=== PATIENT | male | born 2000 | race Caucasian/White ===

== ENCOUNTER 2020-07-17 12:56 | Inpatient (IN) | payer OTHER ==
--- NOTE | 2020-07-17 13:34 | BHS.RME ---
Substance Use & Tx History - Substance Use History Alcohol Substance amount: 3-4 bottles wine Frequency of use: Daily Substance route: Oral Date of Last Use: 07/17/20 Klonopin Substance amount: 1mg 2-3 tabs Frequency of use: Daily Substance route: Oral Date of Last Use: 07/17/20 Methadone Substance amount: street methadone 2 -3 bottles Frequency of use: Daily Substance route: Oral Date of Last Use: 07/16/20 Physical/Psych/Mental Status - Behavior General Behavior: Increased activity (restlessness, agitation) Eye Contact: Normal - Cooperativeness Cooperativeness: Cooperative - Thinking Thought Processes: Tight, Logical, Goal Directed - Physical Health Problems Is patient presently having any pain?: No Does patient presently have any injuries (include location): No Does patient currently have a fever: No Is patient : No CIWA Nausea/Vomitin Muscle Tremors: 3 Anxiety: 3 Agitation: 2 Paroxysmal Sweats: 3 Orientation: 0-Oriented Tacttile Disturbances: 1-Very Mild Itch/Numbness Auditory Disturbances: 0-None Visual Disturbances: 0-None Headache: 0-None Present CIWA-Ar Total Score: 17
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
[2020-07-17] MEDS ORDERED: METHOCARBAMOL 500 MG TABLET PO PRN (16:07)
[2020-07-17] MEDS ORDERED: MAG HYDROX/AL HYDROX/SIMETH 30 ML UNIT-DOSE CUP PO PRN (16:07)
[2020-07-17] MEDS ORDERED: ONDANSETRON *ODT* 4 MG TABLET SL PRN (16:07)
[2020-07-17] MEDS ORDERED: NICOTINE POLACRILEX 2 MG GUM BUC PRN (16:07)
[2020-07-17] MEDS ORDERED: MAGNESIUM CITRATE 300 ML BOTTLE PO PRN (16:07)
[2020-07-17] MEDS ORDERED: BISMUTH SUBSALICYLATE 524 MG/30 ML UD PO PRN (16:07)
[2020-07-17] MEDS ORDERED: IBUPROFEN 400 MG TABLET (FP) PO PRN (16:07)
[2020-07-17] MEDS ORDERED: ACETAMINOPHEN 325 MG TABLET (FP) PO PRN ×2 (16:07)
[2020-07-17] MEDS ORDERED: chlordiazePOXIDE HCL 25 MG CAPSULE PO PRN (16:07)
[2020-07-17] MEDS ORDERED: MAGNESIUM HYDROX 2400MG/30ML ORAL SUSPENSION 30 ML CUP PO PRN (16:07)
[2020-07-17] MEDS ORDERED: MENTHOL/PHENOL 1 EACH UD MM PRN (16:07)
[2020-07-17 16:21] VITALS: BMI 22.1
[2020-07-17] MEDS: chlordiazePOXIDE HCL 25 MG CAPSULE PO SCH ×2 (17:57→22:05)
[2020-07-17] MEDS: NICOTINE 21 MG/24 HOURS TOPICAL PATCH TD SCH (17:57)
[2020-07-17] MEDS: hydrOXYzine PAMOATE 25 MG CAPSULE (FP) PO SCH ×2 (17:58→22:06)
[2020-07-17] MEDS ORDERED: MELATONIN 5 MG TABLETS PO SCH (22:00)
[2020-07-17] MEDS ORDERED: THIAMINE HCL 100 MG TABLET (FP) PO SCH (22:00)
[2020-07-18] MEDS: chlordiazePOXIDE HCL 25 MG CAPSULE PO SCH ×2 (05:47→10:59)
[2020-07-18] MEDS: hydrOXYzine PAMOATE 25 MG CAPSULE (FP) PO SCH ×3 (05:47→14:58)
[2020-07-18 09:24] VITALS: BP 108/62; PULSE 58; TEMP 97.8
[2020-07-18 09:33] LABS: HEMATOCRIT 39.4 % (35.4-49); HEMOGLOBIN 13.6 GM/dL (11.7-16.9); MCH 31.7 pg (25.7-33.7); MCHC 34.6 g/dl (32.0-35.9); MEAN CELL VOLUME 91.7 fl (80-96); MEAN PLT VOLUME 9.1 fl (7.5-11.1); PLATELET COUNT 219 K/MM3 (134-434); RDW 12.9 % (11.9-15.9); WHITE BLOOD COUNT 6.3 K/mm3 (4.0-10.0)
[2020-07-18 09:38] LABS: ALBUMIN 4.2 g/dl (3.4-5.0); BILIRUBIN,TOTAL 0.8 mg/dL (0.2-1); BLOOD UREA NITROGEN 6.5 mg/dL (7-18); CALCIUM 9.2 mg/dL (8.5-10.1); CREATININE 0.8 mg/dL (0.55-1.3); TOT PROT 6.8 g/dl (6.4-8.2)
[2020-07-18] MEDS ORDERED: PRENATAL VITAMINS W/ FOLIC ACID TABLET (FP) PO SCH (10:00)
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
--- NOTE | 2020-07-18 11:41 | PN ---
[facility] CIWA - CIWA Score Nausea/Vomitin-No Nausea/No Vomiting Muscle Tremors: None Anxiety: 3 Agitation: 2 Paroxysmal Sweats: 3 Orientation: 0-Oriented Tacttile Disturbances: 0-None Auditory Disturbances: 0-None Visual Disturbances: 0-None Headache: 2-Mild CIWA-Ar Total Score: 10 S Progress Note (SOAP) Subjective: c/o sweats, anxiety, irritability, and headache. Objective: 07/18/20 11:41 Vital Signs 07/18/20 07/18/20 05:43 08:48 Temperature 97.6 F 97.8 F Pulse Rate 70 58 L Respiratory 20 16 Rate Blood Pressure 107/63 108/62 O2 Sat by Pulse 100 Oximetry (%) Laboratory Last Values WBC 6.3 K/mm3 (4.0-10.0) 07/18/20 07:40 RBC 4.30 M/mm3 (4.00-5.60) 07/18/20 07:40 Hgb 13.6 GM/dL (11.7-16.9) 07/18/20 07:40 Hct 39.4 % (35.4-49) 07/18/20 07:40 MCV 91.7 fl (80-96) 07/18/20 07:40 MCH 31.7 pg (25.7-33.7) 07/18/20 07:40 MCHC 34.6 g/dl (32.0-35.9) 07/18/20 07:40 RDW 12.9 % (11.9-15.9) 07/18/20 07:40 Plt Count 219 K/MM3 (134-434) 07/18/20 07:40 MPV 9.1 fl (7.5-11.1) 07/18/20 07:40 Sodium 140 mmol/L (136-145) 07/18/20 07:40 Potassium 4.0 mmol/L (3.5-5.1) 07/18/20 07:40 Chloride 104 mmol/L (98-107) 07/18/20 07:40 Carbon Dioxide 32 mmol/L (21-32) 07/18/20 07:40 Anion Gap 4 MMOL/L (8-16) L 07/18/20 07:40 BUN 6.5 mg/dL (7-18) L 07/18/20 07:40 Creatinine 0.8 mg/dL (0.55-1.3) 07/18/20 07:40 Est GFR (CKD-EPI)AfAm 148.00 07/18/20 07:40 Est GFR (CKD-EPI)NonAf 127.70 07/18/20 07:40 Random Glucose 86 mg/dL (74-106) 07/18/20 07:40 Calcium 9.2 mg/dL (8.5-10.1) 07/18/20 07:40 Total Bilirubin 0.8 mg/dL (0.2-1) 07/18/20 07:40 AST 13 U/L (15-37) L 07/18/20 07:40 ALT 20 U/L (13-61) 07/18/20 07:40 Alkaline Phosphatase 62 U/L (45-117) 07/18/20 07:40 Total Protein 6.8 g/dl (6.4-8.2) 07/18/20 07:40 Albumin 4.2 g/dl (3.4-5.0) 07/18/20 07:40 Syphilis Serology Non-reactive (NONREACTIVE) 07/18/20 07:40 Labs noted. Assessment: 07/18/20 11:41 AOX3, in no acute respiratory distress. Full ROM, ambulating in the unit. Withdrawal symptoms. Plan: continue detox.
[2020-07-18] MEDS: NICOTINE 21 MG/24 HOURS TOPICAL PATCH TD SCH (14:57)
--- NOTE | 2020-07-18 15:26 | DS ---
[facility] Detox Discharge Summary Admission Date: 07/17/20 Discharge Date: 07/18/20 (Pt left AMA.) - History Present History: Alcohol Dependence, Sedative Dependence Additional Comments: Pt left AMA. Pt did not complete the detox protocol. Pt was verbally abusive to staff and stated "i don't need any benzo's, I need methadone, i want to leave if i can't get methadone". An attempt to let pt stay and complete the detox protocol failed. Pt is encouraged to follow-up with an outpatient CD program and also to follow-up with his pmd but was adamant. Pt is AOX3, in no acute respiratory distress, Full ROM, and ambulatory. Pertinent Past History: h/o alcohol and benzo use disorder. - Physical Exam Results Vital Signs: Vital Signs Temperature 97.8 F 07/18/20 08:48 Pulse Rate 58 L 07/18/20 08:48 Respiratory Rate 16 07/18/20 08:48 Blood Pressure 108/62 07/18/20 08:48 O2 Sat by Pulse Oximetry (%) 100 07/18/20 05:43 Vital Signs 07/18/20 08:48 Temperature 97.8 F Pulse Rate 58 L Respiratory 16 Rate Blood Pressure 108/62 Laboratory Last Values WBC 6.3 K/mm3 (4.0-10.0) 07/18/20 07:40 RBC 4.30 M/mm3 (4.00-5.60) 07/18/20 07:40 Hgb 13.6 GM/dL (11.7-16.9) 07/18/20 07:40 Hct 39.4 % (35.4-49) 07/18/20 07:40 MCV 91.7 fl (80-96) 07/18/20 07:40 MCH 31.7 pg (25.7-33.7) 07/18/20 07:40 MCHC 34.6 g/dl (32.0-35.9) 07/18/20 07:40 RDW 12.9 % (11.9-15.9) 07/18/20 07:40 Plt Count 219 K/MM3 (134-434) 07/18/20 07:40 MPV 9.1 fl (7.5-11.1) 07/18/20 07:40 Sodium 140 mmol/L (136-145) 07/18/20 07:40 Potassium 4.0 mmol/L (3.5-5.1) 07/18/20 07:40 Chloride 104 mmol/L (98-107) 07/18/20 07:40 Carbon Dioxide 32 mmol/L (21-32) 07/18/20 07:40 Anion Gap 4 MMOL/L (8-16) L 07/18/20 07:40 BUN 6.5 mg/dL (7-18) L 07/18/20 07:40 Creatinine 0.8 mg/dL (0.55-1.3) 07/18/20 07:40 Est GFR (CKD-EPI)AfAm 148.00 07/18/20 07:40 Est GFR (CKD-EPI)NonAf 127.70 07/18/20 07:40 Random Glucose 86 mg/dL (74-106) 07/18/20 07:40 Calcium 9.2 mg/dL (8.5-10.1) 07/18/20 07:40 Total Bilirubin 0.8 mg/dL (0.2-1) 07/18/20 07:40 AST 13 U/L (15-37) L 07/18/20 07:40 ALT 20 U/L (13-61) 07/18/20 07:40 Alkaline Phosphatase 62 U/L (45-117) 07/18/20 07:40 Total Protein 6.8 g/dl (6.4-8.2) 07/18/20 07:40 Albumin 4.2 g/dl (3.4-5.0) 07/18/20 07:40 Syphilis Serology Non-reactive (NONREACTIVE) 07/18/20 07:40 Labs noted. Pertinent Admission Physical Exam Findings: Withdrawal symptoms. - Treatment Hospital Course: Detox Protocol Followed - Diagnosis (1) Alcohol dependence with withdrawal, uncomplicated Status: Acute (2) Benzodiazepine dependence Status: Chronic (3) Nicotine dependence Status: Chronic Qualifiers: Nicotine product type: cigarettes Substance use status: uncomplicated Qualified Code(s): F17.210 - Nicotine dependence, cigarettes, uncomplicated (4) Opioid use disorder Status: Chronic - AMA Did Patient Leave Against Medical Advice: Yes
[2020-07-19] MEDS ORDERED: chlordiazePOXIDE HCL 25 MG CAPSULE PO SCH (05:00)
[2020-07-20] MEDS ORDERED: chlordiazePOXIDE HCL 10 MG CAPSULE PO PRN
[2020-07-20] MEDS ORDERED: chlordiazePOXIDE HCL 10 MG CAPSULE PO SCH (05:00)
--- NOTE | 2020-07-20 11:45 | EKG ---
Test Reason : Blood Pressure : / mmHG Vent. Rate : 058 BPM Atrial Rate : 058 BPM P-R Int : 160 ms QRS Dur : 102 ms QT Int : 418 ms P-R-T Axes : 050 051 035 degrees QTc Int : 410 ms SINUS BRADYCARDIA OTHERWISE NORMAL ECG NO PREVIOUS ECGS AVAILABLE Confirmed by GISELA FRANCE MD ([id number]) on 07/20/2020 11:44:24 AM Referred By: Confirmed By:GISELA FRANCE MD
[2020-07-21] MEDS ORDERED: chlordiazePOXIDE HCL 10 MG CAPSULE PO SCH (05:00)
[2020-07-22] MEDS ORDERED: chlordiazePOXIDE HCL 10 MG CAPSULE PO ONE (05:00)
== END 2020-07-18 14:30 | disposition left against medical advice (07) | DRG 770 ==
LOC: YASAS 12:56 → Y3N 16:23
PROVIDERS: ADMIT Allergy & Immunology; ATTEND Allergy & Immunology
PROC: HZ2ZZZZ Detoxification Services for Substance Abuse Treatment (ICD-10-PCS; principal; 2020-07-17)
DX: F10.230 Alcohol dependence with withdrawal, uncomplicated (principal); F13.20 Sedative, hypnotic or anxiolytic dependence, uncomplicated; F11.20 Opioid dependence, uncomplicated; F17.210 Nicotine dependence, cigarettes, uncomplicated; F31.9 Bipolar disorder, unspecified; B18.2 Chronic viral hepatitis C; Z87.81 Personal history of (healed) traumatic fracture; Z91.5 Personal history of self-harm; Z56.0 Unemployment, unspecified; Z59.0 Homelessness
CPT/HCPCS: 36415; 80053; 85027; 86780; 93005; 93010; U0003